=== PATIENT | female | born 1945 | race Caucasian/White ===

== ENCOUNTER 2017-09-28 07:19 | Day surgery (SDC) | payer MEDICARE ==
[2017-09-27 12:08] VITALS: BMI 26.9
[2017-09-28] MEDS ORDERED: Oxymetazoline HCl 0.05% ( 15 ML ) ONE ×3 (08:48→09:10)
[2017-09-28] MEDS ORDERED: Lidocaine 1% w/Epinephrine 1:100K 30 ML VIAL ONE ×2 (08:48→09:25)
[2017-09-28 08:56] LABS: Hemoglobin 14.3 g/dL (12.0-16.0)
[2017-09-28] MEDS ORDERED: Fentanyl 100 MCG/2 ML VIAL ONE ×2 (09:03→09:39)
[2017-09-28 09:15] LABS: Anion Gap 13 mmol/L (10-20); BUN (Urea Nitrogen) 11 mg/dL (9.8-20.1); Calc. Creatinine Clearance 67 mL/min (70-130); Calcium 9.8 mg/dL (7.8-10.44); Carbon Dioxide 24 mmol/L (23-31); Chloride 110 mmol/L (98-107); Estimated GFR-MDRD 69; Glucose 91 mg/dL (80-115); Potassium 4.1 mmol/L (3.5-5.1); Sodium 143 mmol/L (136-145)
[2017-09-28] MEDS ORDERED: Ketorolac Tromethamine 30 MG/ML VIAL ONE (11:48)
[2017-09-28] MEDS ORDERED: Dexamethasone 20 MG/5 ML VIAL ONE (13:34)
[2017-09-28] MEDS ORDERED: Lidocaine 1% PF 5 ML VIAL ONE ×2 (13:34)
[2017-09-28] MEDS ORDERED: Glycopyrrolate 0.2 MG/ML 5 ML SYRINGE ONE (13:34)
[2017-09-28] MEDS ORDERED: Ondansetron HCl/PF 4 MG/2 ML Vial ONE (13:34)
[2017-09-28] MEDS ORDERED: PROPOFOL 200 MG/20 ML VIAL ONE (13:34)
--- NOTE | 2017-09-29 10:57 | OP ---
DATE OF PROCEDURE: 09/30/2017 PREOPERATIVE DIAGNOSES: 1. Chronic rhinosinusitis. 2. Nasal polyposis. 3. Bilateral inferior turbinate hypertrophy. 4. Nasal obstruction. POSTOPERATIVE DIAGNOSES: 1. Chronic rhinosinusitis. 2. Nasal polyposis. 3. Bilateral inferior turbinate hypertrophy. 4. Nasal obstruction. PROCEDURES: 1. Bilateral endoscopic sinus surgery, total ethmoidectomy. 2. Bilateral endoscopic sinus surgery, maxillary antrostomies. 3. Bilateral endoscopic sinus surgery, frontal sinusotomies. 4. Bilateral endoscopic sinus surgery, sphenoidotomies. 5. Bilateral inferior turbinate submucosal resection. SURGEON: Dr. Terry Radford. ESTIMATED BLOOD LOSS: 50 mL COMPLICATIONS: None. ANESTHESIA: GETA. DESCRIPTION OF PROCEDURE: The patient taken to the operating room and placed supine on the table. G eneral endotracheal anesthesia was obtained by the Anesthesia staff. Tube was secured in the left lo wer lip. The patient was placed in the beach chair position. Following this, Afrin pledgets were pl aced in the nasal cavity. The patient was prepped and draped for standard surgical procedure. Follo wing this, the Afrin pledgets were removed and the 0 degree endoscope was used to guide a 27 gauge ne edle injecting 1% lidocaine and 1:100,000 epinephrine into the inferior turbinates, middle turbinates and lateral nasal wall. Following this, a [place] elevator was used to gently medialize the middle tu rbinate bilaterally. On the right side, a large obstructing polyp was noted to be filling the right maxillary sinus, right middle meatus area and was hanging into the posterior nasal cavity. Using str aight [place] forceps and the microdebrider, this large polyp was removed. Following this, the unc inate process was identified bilaterally and was anteriorly fractured with a ball-ended probe rosa isela camacho. Following this, the uncinate process was removed using the 0 degree microdebrider and the upbi ting [place]akesley forceps. Following this, the ethmoidal bulla was identified and was punctured on its medial and inferior aspect bilaterally. The straight microdebrider and the upbiting [place] forcep s were used to remove the ethmoidal bulla. Following this, the grand lamella was identified and was punctured into the posterior ethmoidal cells. Working from posterior to anterior, the ethmoidal cell s were opened in a mucosal-sparing technique. Following this, the 45-degree scope and the 40-degree microdebrider was used to further open the frontal recess cells exposing the frontal sinus ostia bila terally. The frontal sinus ostia were then widened using the 40 degree microdebrider bilaterally. F ollowing this, the sphenoid sinuses were identified. Staying just medial and inferior to the attachm ent of the superior turbinate to the posterior nasal wall. The sphenoid sinus ostia were identified and were punctured with the 0 degree microdebrider and was gently widened bilaterally in a medial and inferior direction. Following this, inferior turbinates were punctured on the anterior inferior asp ect and submucosal resection was performed bilaterally of the anterior and inferior portions of the i nferior turbinates bilaterally. Following this, the nasal cavity was irrigated. MeroPacks were plac ed. The patient tolerated the procedure well.
== END 2017-09-28 12:20 | disposition home or self-care (01) ==
LOC: SDC 07:19
PROVIDERS: ATTEND Otolaryngology Plastic Surgery within the Head & Neck
PROC: 09TV8ZZ Resection of Left Ethmoid Sinus, Via Natural or Artificial Opening Endoscopic (ICD-10-PCS; principal; 2017-09-28)
PROC: 09TU8ZZ Resection of Right Ethmoid Sinus, Via Natural or Artificial Opening Endoscopic (ICD-10-PCS; 2017-09-28)
PROC: 09BV8ZZ Excision of Left Ethmoid Sinus, Via Natural or Artificial Opening Endoscopic (ICD-10-PCS; 2017-09-28)
PROC: 09BR8ZZ Excision of Left Maxillary Sinus, Via Natural or Artificial Opening Endoscopic (ICD-10-PCS; 2017-09-28)
PROC: 09BQ8ZZ Excision of Right Maxillary Sinus, Via Natural or Artificial Opening Endoscopic (ICD-10-PCS; 2017-09-28)
DX: J32.0 Chronic maxillary sinusitis (principal); J32.2 Chronic ethmoidal sinusitis; J33.0 Polyp of nasal cavity; J34.2 Deviated nasal septum; J34.3 Hypertrophy of nasal turbinates; H93.13 Tinnitus, bilateral; R09.82 Postnasal drip; J34.89 Other specified disorders of nose and nasal sinuses; J33.9 Nasal polyp, unspecified
CPT/HCPCS: 80048; 85014; 85018; 88304; 93005; 93010; 96374; J0131; J1100; J1885; J2001; J2405; J2704; J3010